=== PATIENT | male | born 2000 | race African-American/Black ===

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

== ENCOUNTER 2020-12-16 23:11 | Observation (INO) ==
[2020-12-16 23:24] VITALS: BMI 21.2
--- NOTE | 2020-12-17 01:37 | DR.EXTPAIN ---
HPI Time seen Time Seen by Provider: 12/17/20 00:35 PCP Primary Care Physician: QUINCY NEWELL HPI Comment HPI Comment: PATIENT IS 20YR OLD MALE IN ER WITH INCREASING RLQ ABDOMINAL PAIN WITH ON AND OFF NAUSEA AND VOMITING AND ANOREXIA TIMES 3 WEEKS WHICH GOT WORSE TODAY. NO FEVER. Complaint/Symptoms Chief Complaint Doctor Comments: RLQ ABDOMINAL PAIN TIMES 3 WEEKS WITH INTERMITTENT NAUSEA AND VOMITING AND ANOREXIA. COVID-19 Coronavirus risk:travel/contact w/high risk person: No Has patient experienced Coronavirus symptoms: No Nurses notes reviewed Nurses Notes Review: Yes Source History Provided: Patient Mode of arrival Mode of Arrival: Ambulatory Timing Onset of Chief Complaint: 10/28/20 Context History of: None Associated signs and symptoms Associated Signs and Symptoms: Abdominal Pain PMH PMH Past Medical History: Yes Past Medical History: Hypertension Past Medical History Comment: ADD Past Surgical History: Yes Surgical History: Tonsillectomy Family History History of Family Medical Conditions: Yes Family Medical History: Diabetes Mellitus and Hypertension Family Medical History Comment: MOM-DM, HTN Social History Does patient currently use any type of tobacco product: Yes Have you used tobacco products in the last 12 months: Yes Does any household member use tobacco: No Alcohol Use: None Do you use any recreational Drugs:: Yes (MARIJUANA) Lives With: Family Lives Where: Home Travel Risk Coronavirus risk:travel/contact w/high risk person: No Has patient experienced Coronavirus symptoms: No Infectious screening In the last 2 months have you had wt loss of >10#?: NO Have you had fever, night sweats or hemotysis?: No Have you traveled outside the country in the last 6 months?: No Isolation: Standard ROS Review of Systems Constitutional: See HPI, Fatigue and Loss of Appetite; negative Fever and Weakness Eyes: No Symptoms Reported and See HPI ENTM: No Symptoms Reported and See HPI; negative Nose Discharge and Nose Congestion Respiratoy: No Symptoms Reported and See HPI; negative Moist Cough and Short of Breath Cardiovascular: No Symptoms Reported and See HPI; negative Chest Pain Gastrointestinal/Abdominal: See HPI, Abdominal Pain and Nausea; negative Diarrhea and Vomiting Genitourinary: No Symptoms Reported and See HPI; negative Dysuria, Frequency and Hematuria Neurological: No Symptoms Reported and See HPI; negative Headache, Weakness and Dizziness Musculoskeletal: No Symptoms Reported and See HPI; negative Back Pain and Muscle Pain Integumentary: No Symptoms Reported and See HPI; negative Change in Color, Rash and Juandice Hematologic/Lymphatic: No Symptoms Reported and See HPI Endocrine: No Symptoms Reported and See HPI; negative Increased Thirst and Increased Urine Psychiatric: No Symptoms Reported and See HPI All Other Systems: Reviewed and Negative PE Vital Signs Vitals: Temperature 99.4 F Pulse Rate 89 Respiratory Rate 18 Blood Pressure [Left Arm] 112/66 Blood Pressure 120/74 O2 Sat by Pulse Oximetry 99 General Limitations: No Limitations General Appearance: Alert and In No Apparent Distress Head Head Exam: Normal Inspection and Atraumatic Eyes Eye exam: Normal Appearance and PERRL; negative Scleral Icterus and Conjunctival Injection ENT ENT Exam: Normal Exam; negative Normal Oropharynx, Normal External Ear Exam and TM's Normal Bilaterally Neck Neck Exam: Normal Inspection and Trachea Midline; negative Tenderness and L ymphadenopathy Chest Chest Inspection: Normal Inspection and Symmetric Chest Wall Rise; negative Tenderness Respiratory Respiratory Exam: Normal Lung Sounds Bilat; negative Accessory Muscle Use, Chest Wall Tenderness and Respiratory Distress Respiratory Exam: Bilateral: Clear to Auscultation Cardiovascular Cardiovascular Exam: Regular Rate, Normal Rhythm and Normal Heart Sounds; negative Systolic Murmur and Diastolic Murmur Abdominal Exam Abdominal Exam: Normal Bowel Sounds, Soft and Tenderness Abdominal Tenderness: RLQ and Moderate Extremities Extremities Exam: Normal Inspection and Normal Capillary Refill; negative Tenderness, Edema and Calf Tenderness Back Back Exam: Normal Inspection; negative (R) CVA Tenderness and (L) CVA Tenderness Neurological Neurological Exam: Alert, Oriented X3 and CN II-XII Intact; negative Motor Sens ory Deficit Psychiatric Psychiatric Exam: Normal Affect and Normal Mood Skin Skin Exam: Warm, Dry, Intact and Normal Color MDM Differential Diagnosis Differential Diagnosis: Other (APPENDICITIS, BOWEL OBSTRUCTION, CONSTIPATION, UTI, KIDNEYSTONE, DIVERTICULITID.) COURSE Treatment Treatment: SEE ORDERS. NS 125CC/HE. ZOSYN 3.375GM IV PB. Consultation Consultation Comments: DISCUSSED PATIENT WITH DR. ESPINOSA. HE WILL ADMIT PATIENT. Education/Counseling Education/Counseling: Patient Educated On: Diagnosis ROR Labs Reviewed Laboratory Results Reviewed?: Yes Result Diagrams: 12/17/20 01:30 12/17/20 01:30 Laboratory: WBC 11.0 X10^3/uL (3.6-10.0) H 12/17/20 01:30 RBC 4.72 X10^6/uL (4.7-6.0) 12/17/20 01:30 Hgb 14.3 g/dL (13.5-18.0) 12/17/20 01:30 Hct 42.2 % (42.0-54.0) 12/17/20 01:30 MCV 89.2 fL (80.0-100.0) 12/17/20 01:30 MCH 30.2 pg (27.0-34.0) 12/17/20 01:30 MCHC 33.9 g/dL (33.0-35.0) 12/17/20 01:30 RDW 14.0 % (11.6-16.5) 12/17/20 01:30 Plt Count 258 X10^3/uL (150.0-450.0) 12/17/20 01:30 MPV 7.3 fL (7.4-11.0) L 12/17/20 01:30 Neut % (Auto) 77.0 % (42.0-75.0) H 12/17/20 01:30 Lymph % (Auto) 11.2 % (21.0-51.0) L 12/17/20 01:30 [place] % (Auto) 9.4 % (0.0-13.0) 12/17/20 01:30 Eos % (Auto) 1.5 % (0.9-2.9) 12/17/20 01:30 Baso % (Auto) 0.9 % (0.2-1.0) 12/17/20 01:30 Neut # (Auto) 8.4 x10^3/uL (2.2-4.8) H 12/17/20 01:30 Lymph # (Auto) 1.2 X10^3/uL (1.3-2.9) L 12/17/20 01:30 [place] # (Auto) 1.0 x10^3/uL (0.3-0.8) H 12/17/20 01:30 Eos # (Auto) 0.2 x10^3/uL (0.0-0.2) 12/17/20 01:30 Baso # (Auto) 0.1 X10^3/uL (0.0-0.1) 12/17/20 01:30 Absolute Nucleated RBC 0.0 /100WBC 02/22/21 01:30 Sodium 140 mmol/L (136-145) 12/17/20 01:30 Corrected Sodium 140 mmol/L (136-145) 12/17/20 01:30 Potassium 4.0 mmol/L (3.5-5.1) 12/17/20 01:30 Chloride 104 mmol/L (98-107) 12/17/20 01:30 Carbon Dioxide 30.6 mmol/L (21-32) 12/17/20 01:30 BUN 13 mg/dL (7-18) 12/17/20 01:30 Creatinine 1.51 mg/dL (0.70-1.30) H 12/17/20 01:30 Est GFR (MDRD) Af Amer > 60 (>60) 12/17/20 01:30 Est GFR (MDRD) Non-Af > 60 (>60) 12/17/20 01:30 Glucose 114 mg/dL (65-99) H 12/17/20 01:30 Calcium 9.0 mg/dL (8.5-10.1) 12/17/20 01:30 Corrected Calcium 9.9 mg/dL (8.5-10.1) 12/17/20 01:30 Total Bilirubin 0.50 mg/dL (0.2-1.0) 12/17/20 01:30 AST 21 Units/L (15-37) 12/17/20 01:30 ALT 25 Units/L (12-78) 12/17/20 01:30 Alkaline Phosphatase 63 Units/L (46-116) 12/17/20 01:30 Total Protein 7.7 g/dL (6.4-8.2) 12/17/20 01:30 Albumin 2.9 g/dL (3.4-5.0) L 12/17/20 01:30 Globulin 4.8 g/dL (2.5-4.5) H 12/17/20 01:30 Albumin/Globulin Ratio 0.6 Ratio (1.1-2.1) L 12/17/20 01:30 Amylase 100 Units/L (25-115) 12/17/20 01:30 Lipase 157 Units/L (73-393) 12/17/20 01:30 Specimen Type Clean catch urine 12/17/20 01:41 Urine Color Yellow (YELLOW) 12/17/20 01:41 Urine Appearance Clear (CLEAR) 12/17/20 01:41 Urine pH 6.0 (5.0 - 8.0) 12/17/20 01:41 Ur Specific [place] 1.020 (1.000-1.030) 12/17/20 01:41 Urine Protein Negative (NEGATIVE) 12/17/20 01:41 Urine Glucose (UA) Negative (NEGATIVE) 12/17/20 01:41 Urine Ketones Negative (NEGATIVE) 12/17/20 01:41 Urine Occult Blood Negative (NEGATIVE) 12/17/20 01:41 Urine Nitrite Negative (NEGATIVE) 12/17/20 01:41 Urine Bilirubin Negative (NEGATIVE) 12/17/20 01:41 Urine Urobilinogen Normal (NORMAL) 12/17/20 01:41 Ur Leukocyte Esterase Negative (NEGATIVE) 12/17/20 01:41 XRAY XRAY Interpreted by: Radiologist (REPORT NOTED AND DISCUSSED WITH PATIENT.) Opioid Opioid Risk Tool Age (Ganga box if 16-45): Yes History of Preadolescent Sexual Abuse: No Total: 1 Total Score Risk Category: Low Risk Copyright: Aleksander LUGO predicting aberrant behaviors Diagnosis Discharge Problem: Abdominal pain, RLQ Acute appendicitis Qualifiers: Acute appendicitis type: with localized peritonitis Appendicitis gangrene presence: without gangrene Appendicitis perforation presence: without perfor ation Appendicitis abscess presence: without abscess Qualified Code(s): K35.30 - Acute appendicitis with localized peritonitis, without perforation or gangrene Instructions Forms: Precautions for COVID19 Patient Portal Social Distancing
[2020-12-17 02:12] LABS: BASOPHILS # (AUTO) 0.1 X10^3/uL (0.0-0.1); BASOPHILS % (AUTO) 0.9 % (0.2-1.0); EOSINOPHILS # (AUTO) 0.2 x10^3/uL (0.0-0.2); EOSINOPHILS % (AUTO) 1.5 % (0.9-2.9); HEMATOCRIT 42.2 % (42.0-54.0); HEMOGLOBIN 14.3 g/dL (13.5-18.0); LYMPHOCYTES # (AUTO) 1.2 X10^3/uL (1.3-2.9); LYMPHOCYTES % (AUTO) 11.2 % (21.0-51.0); MEAN CORPUSCULAR HEMOGLOBIN 30.2 pg (27.0-34.0); MEAN CORPUSCULAR HGB CONC 33.9 g/dL (33.0-35.0); MEAN CORPUSCULAR VOLUME 89.2 fL (80.0-100.0); MEAN PLATELET VOLUME 7.3 fL (7.4-11.0); MONOCYTES % (AUTO) 9.4 % (0.0-13.0); NEUTROPHILS # (AUTO) 8.4 x10^3/uL (2.2-4.8); PLATELET COUNT 258 X10^3/uL (150.0-450.0); RED BLOOD COUNT 4.72 X10^6/uL (4.7-6.0)
[2020-12-17 02:17] LABS: ALANINE AMINOTRANSFERASE 25 Units/L (12-78); ALBUMIN 2.9 g/dL (3.4-5.0); ALKALINE PHOSPHATASE 63 Units/L (46-116); AMYLASE 100 Units/L (25-115); ASPARTATE AMINO TRANSFERASE 21 Units/L (15-37); BLOOD UREA NITROGEN 13 mg/dL (7-18); CARBON DIOXIDE 30.6 mmol/L (21-32); CHLORIDE 104 mmol/L (98-107); COR CA(FOR HYPOALB) 9.9 mg/dL (8.5-10.1); COR NA(FOR HYPERGLY) 140 mmol/L (136-145); CREATININE 1.51 mg/dL (0.70-1.30); LIPASE 157 Units/L (73-393); SODIUM 140 mmol/L (136-145); TOTAL PROTEIN 7.7 g/dL (6.4-8.2); eGFR NON BLACK RACES > 60 (>60)
[2020-12-17 02:37] LABS: BILIRUBIN,URINE NEGATIVE (NEGATIVE); BLOOD/HEMOGLOBIN,URINE NEGATIVE (NEGATIVE); GLUCOSE, URINE NEGATIVE (NEGATIVE); KETONES,URINE NEGATIVE (NEGATIVE); LEUKOCYTE ESTERASE ,URINE NEGATIVE (NEGATIVE); NITRITES,URINE NEGATIVE (NEGATIVE); PROTEIN,URINE NEGATIVE (NEGATIVE); UROBILINOGEN,URINE NORMAL (NORMAL)
[2020-12-17 02:40] LABS: APPEARANCE,URINE CLEAR (CLEAR); COLOR,URINE YELLOW (YELLOW)
--- NOTE | 2020-12-17 04:04 | CT ---
PROCEDURE: CT Abdomen and Pelvis with Contrast .HISTORY: Right lower quadrant pain with nausea and vomiting.TECHNIQUE: Axial images were performed through the abdomen and pelvis with the administration of IV contrast with multiplanar reformations . Oral contrast was administered. Dose reduction techniques including Automated Exposure Control (AEC) and adjustment of mA and kV were utilized .COMPARISON: None .TECHNICAL QUALITY: Satisfactory .FINDINGS:Clear lung bases.Liver, spleen, adrenals, pancreas show no significant abnormality. Kidneys show normal enhancement with no mass or obstruction.Contracted gallbladder with normal size biliary tree.No abdominal ascites or pneumoperitoneum.Normal aorta.No lymphadenopathy.20 mm dilated appendix with thickened wall and moderate periappendiceal stranding right lower quadrant consistent with acute appendicitis. No bowel obstruction or inflammation.Pelvis shows no masses or fluid. Normal urinary bladder.No acute bony abnormality.IMPRESSION:Acute appendicitis right lower quadrant.Report was called by myself to Dr. Easton at 3 a.m. central standard time on 12/17/2020lectronically signed by: Sharan Trujillo (Dec 17, 2020 04:02:16)
[2020-12-17] MEDS ORDERED: ZOSYN VIAL 3.375 GRAMS 3.375 G in NS 100 ML IV + SPIKE MINIBAG* 100 ML IV SCH ×2 (04:28→14:00)
[2020-12-17] MEDS ORDERED: ZOSYN VIAL 3.375 GRAMS IV ONE (04:37)
[2020-12-17] MEDS ORDERED: NS 100 ML IV 100 ML IV ONE (04:37)
[2020-12-17] MEDS ORDERED: ZOFRAN INJ 4 MG VIAL IVP PRN ×2 (04:47→13:48)
[2020-12-17] MEDS ORDERED: DILAUDID INJ IVP PRN ×2 (04:47→13:48)
[2020-12-17] MEDS ORDERED: NS 1000 ML 1,000 ML IV SCH (05:17)
[2020-12-17] MEDS: MORPHINE SULFATE INJ 2 MG INJ IVP PRN ×2 (06:24→10:44)
[2020-12-17] MEDS: ZOFRAN INJ 4 MG VIAL IVP PRN (06:24)
[2020-12-17] MEDS ORDERED: FENTANYL INJ 250 mcg ONE (10:50)
[2020-12-17] MEDS ORDERED: BRIDION ONE (10:50)
[2020-12-17] MEDS ORDERED: ZEMURON 50 MG VIAL ONE (10:51)
[2020-12-17] MEDS ORDERED: OFIRMEV IV 1000 MG VIAL 1,000 MG/100 ML VIAL IV ONE (10:51)
[2020-12-17] MEDS ORDERED: LR 1000 ML IV 1,000 ML IV ONE ×2 (11:05→12:14)
[2020-12-17] MEDS ORDERED: ANCEF 1 GRAM IV PREMIX* 1 G/50 ML BAG IV ONE (11:10)
[2020-12-17] MEDS ORDERED: XYLOCAINE 2 % (PLAIN) ONE (11:32)
[2020-12-17] MEDS ORDERED: ZOFRAN INJ 4 MG VIAL ONE (11:32)
[2020-12-17] MEDS ORDERED: ROBINUL ONE (11:32)
[2020-12-17] MEDS ORDERED: DECADRON INJ ONE (11:32)
[2020-12-17] MEDS ORDERED: SUPRANE ONE (11:32)
[2020-12-17] MEDS ORDERED: VERSED ONE (11:32)
[2020-12-17] MEDS ORDERED: TORADOL 30 MG VIAL ONE (11:32)
[2020-12-17] MEDS ORDERED: NEO-SYNEPHRINE INJ ONE (11:32)
[2020-12-17] MEDS ORDERED: DIPRIVAN VIAL ONE (11:32)
[2020-12-17] MEDS ORDERED: LTA KIT LIDOCAINE 4% ONE (11:32)
[2020-12-17] MEDS ORDERED: BACTROBAN TOPICAL OINT ONE (11:53)
[2020-12-17] MEDS ORDERED: PHENERGAN INJ 25 MG IM PRN (13:48)
[2020-12-17] MEDS ORDERED: BENADRYL INJ 50 MG VIAL IVP PRN (13:48)
[2020-12-17] MEDS ORDERED: REGLAN INJ 10 MG VIAL IVP PRN (13:48)
[2020-12-17] MEDS: FLAGYL IV PREMIX 500 MG BAG 500 MG/100 ML BAG IV SCH ×2 (14:25→21:59)
[2020-12-17] MEDS: D5 1/2 NS 1000 ML 1,000 ML IV SCH ×2 (14:25→22:05)
[2020-12-17] MEDS: ZOSYN VIAL 3.375 GRAMS 3.375 G in NS 100 ML IV + SPIKE MINIBAG* 100 ML IV SCH ×2 (15:45→23:02)
[2020-12-17] MEDS: DILAUDID INJ IVP PRN ×2 (16:36→22:00)
[2020-12-18] MEDS: DILAUDID INJ IVP PRN ×4 (01:40→19:38)
[2020-12-18] MEDS: FLAGYL IV PREMIX 500 MG BAG 500 MG/100 ML BAG IV SCH ×3 (05:03→21:10)
[2020-12-18 05:04] LABS: BASOPHILS # (AUTO) 0.1 X10^3/uL (0.0-0.1); BASOPHILS % (AUTO) 0.4 % (0.2-1.0); EOSINOPHILS % (AUTO) 0.1 % (0.9-2.9); HEMOGLOBIN 12.6 g/dL (13.5-18.0); LYMPHOCYTES % (AUTO) 6.3 % (21.0-51.0); MEAN CORPUSCULAR HEMOGLOBIN 29.5 pg (27.0-34.0); MEAN CORPUSCULAR HGB CONC 33.3 g/dL (33.0-35.0); MEAN CORPUSCULAR VOLUME 88.5 fL (80.0-100.0); MEAN PLATELET VOLUME 7.4 fL (7.4-11.0); MONOCYTES # (AUTO) 0.9 x10^3/uL (0.3-0.8); MONOCYTES % (AUTO) 5.5 % (0.0-13.0); NEUTROPHILS # (AUTO) 14.5 x10^3/uL (2.2-4.8); NEUTROPHILS % (AUTO) 87.7 % (42.0-75.0); PLATELET COUNT 258 X10^3/uL (150.0-450.0); RED BLOOD COUNT 4.29 X10^6/uL (4.7-6.0); RED CELL DISTRIBUTION WIDTH 13.6 % (11.6-16.5); WHITE BLOOD COUNT 16.6 X10^3/uL (3.6-10.0)
[2020-12-18 05:14] LABS: ALANINE AMINOTRANSFERASE 16 Units/L (12-78); ALBUMIN 2.4 g/dL (3.4-5.0); ALKALINE PHOSPHATASE 55 Units/L (46-116); ASPARTATE AMINO TRANSFERASE 13 Units/L (15-37); BLOOD UREA NITROGEN 15 mg/dL (7-18); CALCIUM 8.5 mg/dL (8.5-10.1); CARBON DIOXIDE 26.1 mmol/L (21-32); CHLORIDE 100 mmol/L (98-107); COR CA(FOR HYPOALB) 9.8 mg/dL (8.5-10.1); COR NA(FOR HYPERGLY) 135 mmol/L (136-145); CREATININE 1.32 mg/dL (0.70-1.30); SODIUM 134 mmol/L (136-145); TOTAL PROTEIN 6.9 g/dL (6.4-8.2); eGFR NON BLACK RACES > 60 (>60)
[2020-12-18] MEDS: ZOSYN VIAL 3.375 GRAMS 3.375 G in NS 100 ML IV + SPIKE MINIBAG* 100 ML IV SCH ×3 (05:53→22:05)
[2020-12-18] MEDS: D5 1/2 NS 1000 ML 1,000 ML IV SCH ×3 (05:57→21:18)
[2020-12-18] MEDS ORDERED: XANAX PO ONE (10:57)
--- NOTE | 2020-12-18 14:45 | DR.PROGNOT ---
Hospital Progress Notes - Progress Note for Day of: Progress Note Date: 12/18/20 - Chief Complaint Chief Complaint: was unable to void last night required placement of Choudhury catheter . mild drainage in GENNA . c/o moderate Rt abdominal pain . no nausea or vomiting .. WBC 16.6 . creat 1.3. temp 98.2 - Past Medical Family Social History Past Med/Fam/Surg Hx: No changes since H&P Allergies: Allergies No Known Drug Allergies Allergy (Verified 07/03/20 09:38) - Review Of Systems ROS: No change since H&P - Vital Signs Vital Signs: Temperature 98.5 F Pulse Rate [Left Radial] 84 Pulse Rate 85 Respiratory Rate 20 Blood Pressure [Left Arm] 126/69 Blood Pressure 141/87 O2 Sat by Pulse Oximetry 98 - Physical Exam Oriented: Normal Eyes: Normal Ear: Normal Nose: Normal Throat: Normal Respiratory: Normal Cardiovascular: Normal : Normal GI:Auscultation: Normal GI:Palpation: Normal GI: Tenderness: RLQ (soft abdomen . RLQ tenderness ) Speech Pattern: Clear, Appropriate - Laboratory and Diagnostics Result Diagrams: 12/18/20 04:00 12/18/20 04:00 Labs: Laboratory WBC 16.6 X10^3/uL (3.6-10.0) H 12/18/20 04:00 RBC 4.29 X10^6/uL (4.7-6.0) L 12/18/20 04:00 Hgb 12.6 g/dL (13.5-18.0) L 12/18/20 04:00 Hct 38.0 % (42.0-54.0) L 12/18/20 04:00 MCV 88.5 fL (80.0-100.0) 12/18/20 04:00 MCH 29.5 pg (27.0-34.0) 12/18/20 04:00 MCHC 33.3 g/dL (33.0-35.0) 12/18/20 04:00 RDW 13.6 % (11.6-16.5) 12/18/20 04:00 Plt Count 258 X10^3/uL (150.0-450.0) 12/18/20 04:00 MPV 7.4 fL (7.4-11.0) 12/18/20 04:00 Neut % (Auto) 87.7 % (42.0-75.0) H 12/18/20 04:00 Lymph % (Auto) 6.3 % (21.0-51.0) L 12/18/20 04:00 [place] % (Auto) 5.5 % (0.0-13.0) 12/18/20 04:00 Eos % (Auto) 0.1 % (0.9-2.9) L 12/18/20 04:00 Baso % (Auto) 0.4 % (0.2-1.0) 12/18/20 04:00 Neut # (Auto) 14.5 x10^3/uL (2.2-4.8) H 12/18/20 04:00 Lymph # (Auto) 1.0 X10^3/uL (1.3-2.9) L 12/18/20 04:00 [place] # (Auto) 0.9 x10^3/uL (0.3-0.8) H 12/18/20 04:00 Eos # (Auto) 0.0 x10^3/uL (0.0-0.2) 12/18/20 04:00 Baso # (Auto) 0.1 X10^3/uL (0.0-0.1) 12/18/20 04:00 Absolute Nucleated RBC 0.0 /100WBC 12/18/20 04:00 Sodium 134 mmol/L (136-145) L 12/18/20 04:00 Corrected Sodium 135 mmol/L (136-145) L 12/18/20 04:00 Potassium 3.7 mmol/L (3.5-5.1) 12/18/20 04:00 Chloride 100 mmol/L (98-107) 12/18/20 04:00 Carbon Dioxide 26.1 mmol/L (21-32) 12/18/20 04:00 BUN 15 mg/dL (7-18) 12/18/20 04:00 Creatinine 1.32 mg/dL (0.70-1.30) H 12/18/20 04:00 Est GFR (MDRD) Af Amer > 60 (>60) 12/18/20 04:00 Est GFR (MDRD) Non-Af > 60 (>60) 12/18/20 04:00 Glucose 132 mg/dL (65-99) H 12/18/20 04:00 Calcium 8.5 mg/dL (8.5-10.1) 12/18/20 04:00 Corrected Calcium 9.8 mg/dL (8.5-10.1) 12/18/20 04:00 Total Bilirubin 1.10 mg/dL (0.2-1.0) H 12/18/20 04:00 AST 13 Units/L (15-37) L 12/18/20 04:00 ALT 16 Units/L (12-78) 12/18/20 04:00 Alkaline Phosphatase 55 Units/L (46-116) 12/18/20 04:00 Total Protein 6.9 g/dL (6.4-8.2) 12/18/20 04:00 Albumin 2.4 g/dL (3.4-5.0) L 12/18/20 04:00 Globulin 4.5 g/dL (2.5-4.5) 12/18/20 04:00 Albumin/Globulin Ratio 0.5 Ratio (1.1-2.1) L 12/18/20 04:00 Amylase 100 Units/L (25-115) 12/17/20 01:30 Lipase 157 Units/L (73-393) 12/17/20 01:30 Specimen Type Clean catch urine 12/17/20 01:41 Urine Color Yellow (YELLOW) 12/17/20 01:41 Urine Appearance Clear (CLEAR) 12/17/20 01:41 Urine pH 6.0 (5.0 - 8.0) 12/17/20 01:41 Ur Specific [place] 1.020 (1.000-1.030) 12/17/20 01:41 Urine Protein Negative (NEGATIVE) 12/17/20 01:41 Urine Glucose (UA) Negative (NEGATIVE) 12/17/20 01:41 Urine Ketones Negative (NEGATIVE) 12/17/20 01:41 Urine Occult Blood Negative (NEGATIVE) 12/17/20 01:41 Urine Nitrite Negative (NEGATIVE) 12/17/20 01:41 Urine Bilirubin Negative (NEGATIVE) 12/17/20 01:41 Urine Urobilinogen Normal (NORMAL) 12/17/20 01:41 Ur Leukocyte Esterase Negative (NEGATIVE) 12/17/20 01:41 SARS CoV-2 RNA Rapid JANIE Negative (NEGATIVE) 12/17/20 04:32 Tissue Pathology To follow 12/17/20 12:39 - Assessment and Plan 1: ruptured appendicitis with RLQ abscess . s/p surgery . same IV ATB . advance diet . - Problem Patient Problems: Patient Problems Acute appendicitis (Acute) K35.80 Abdominal pain, RLQ (Acute) R10.31
[2020-12-18] MEDS ORDERED: MILK OF MAGNESIA PO PRN (19:48)
[2020-12-18] MEDS: COLACE CAP 100 MG PO SCH (20:21)
[2020-12-19] MEDS: DILAUDID INJ IVP PRN ×2 (00:45→06:18)
[2020-12-19] MEDS: FLAGYL IV PREMIX 500 MG BAG 500 MG/100 ML BAG IV SCH (05:05)
[2020-12-19] MEDS: D5 1/2 NS 1000 ML 1,000 ML IV SCH (06:04)
[2020-12-19] MEDS: ZOSYN VIAL 3.375 GRAMS 3.375 G in NS 100 ML IV + SPIKE MINIBAG* 100 ML IV SCH (06:05)
[2020-12-19 06:08] LABS: BASOPHILS % (AUTO) 0.4 % (0.2-1.0); EOSINOPHILS # (AUTO) 0.1 x10^3/uL (0.0-0.2); EOSINOPHILS % (AUTO) 1.6 % (0.9-2.9); HEMATOCRIT 36.6 % (42.0-54.0); HEMOGLOBIN 12.7 g/dL (13.5-18.0); LYMPHOCYTES % (AUTO) 11.9 % (21.0-51.0); MEAN CORPUSCULAR HEMOGLOBIN 30.4 pg (27.0-34.0); MEAN CORPUSCULAR HGB CONC 34.6 g/dL (33.0-35.0); MEAN CORPUSCULAR VOLUME 87.7 fL (80.0-100.0); MONOCYTES # (AUTO) 0.8 x10^3/uL (0.3-0.8); MONOCYTES % (AUTO) 9.4 % (0.0-13.0); NEUTROPHILS # (AUTO) 6.5 x10^3/uL (2.2-4.8); NEUTROPHILS % (AUTO) 76.7 % (42.0-75.0); PLATELET COUNT 260 X10^3/uL (150.0-450.0); RED BLOOD COUNT 4.18 X10^6/uL (4.7-6.0); RED CELL DISTRIBUTION WIDTH 13.7 % (11.6-16.5); WHITE BLOOD COUNT 8.4 X10^3/uL (3.6-10.0)
[2020-12-19 06:41] LABS: ALANINE AMINOTRANSFERASE 14 Units/L (12-78); ALBUMIN 2.4 g/dL (3.4-5.0); ALKALINE PHOSPHATASE 51 Units/L (46-116); ASPARTATE AMINO TRANSFERASE 13 Units/L (15-37); BLOOD UREA NITROGEN 9 mg/dL (7-18); CALCIUM 8.8 mg/dL (8.5-10.1); CARBON DIOXIDE 28.7 mmol/L (21-32); CHLORIDE 99 mmol/L (98-107); COR CA(FOR HYPOALB) 10.1 mg/dL (8.5-10.1); COR NA(FOR HYPERGLY) 135 mmol/L (136-145); CREATININE 1.16 mg/dL (0.70-1.30); SODIUM 135 mmol/L (136-145); eGFR NON BLACK RACES > 60 (>60)
[2020-12-19 08:00] VITALS: BP 132/64
[2020-12-19] MEDS: ZOFRAN INJ 4 MG VIAL IVP PRN (09:08)
[2020-12-19] MEDS: COLACE CAP 100 MG PO SCH (09:08)
== END 2020-12-19 11:00 | disposition home or self-care (01) ==
LOC: MED/SURG 23:12 → ER 23:12 → MED/SURG 12-17 05:09
PROVIDERS: ADMIT Surgery; ATTEND Surgery
PROC: APPYLAP (ICD-10-PCS; 2020-12-17 12:00)
DX: K35.21 Acute appendicitis with generalized peritonitis, with abscess; R94.4 Abnormal results of kidney function studies; R03.0 Elevated blood-pressure reading, without diagnosis of hypertension; Z20.828 Contact with and (suspected) exposure to other viral communicable diseases; F41.8 Other specified anxiety disorders; D72.828 Other elevated white blood cell count